=== PATIENT | male | born 1980 | race Caucasian/White ===

== ENCOUNTER 2017-02-11 22:52 | Emergency (ER) | payer OTHER ==
[~2017-02-11] VITALS: Ht 177.8 cm; Wt 67.5 kg
[2017-02-11 22:58] VITALS: Ht 177.8 cm; Wt 67.5 kg
[2017-02-11] MEDS ORDERED: NYST15CR16 TOP (23:11)
--- NOTE | 2017-02-12 00:11 | ERD ---
ER Documentation Chief Complaint Date/Time DATE: 02/12/17 TIME: 00:11 Chief Complaint chronic bilateral wound on both legs HPI Patient is a 37-year-old male with no medical problems who presents with ulcers to his legs. He has ulcers to his left leg and one ulcer on the right leg. They have been there for "a long time". He tried hydrogen peroxide. He said that it initially started when his leg was hit by a shopping cart. He is homeless. Upon review of old medical records this is the patient's first visit to the emergency department. Review of the emergency department information exchange shows no visits to other local emergency departments. However he does not currently have a primary doctor. He wants a cream for his ulcers. ROS All systems reviewed and are negative except as per history of present illness. Medications Home Meds Active Scripts Nystatin-Triamcinolone* (Nystatin-Triamcinolone* Cream) 15 Gm Cream.gm., 1 APPLIC TOP BID for 7 Days, TUB Prov:IMELDA MARSHALL MD 02/11/17 Allergies Allergies: Coded Allergies: No Known Allergy (Unverified , 02/11/17) PMhx/Soc Medical and Surgical Hx: pt denies Medical Hx, pt denies Surgical Hx Hx Alcohol Use: No Hx Substance Use: No Hx Tobacco Use: Yes Smoking Status: Current every day smoker FmHx Family History: diabetes Physical Exam Vitals Vital Signs Date Time Temp Pulse Resp B/P Pulse Ox O2 Delivery O2 Flow Rate FiO2 02/11/17 22:58 97.6 57 20 134/70 98 Physical Exam Const: No acute distress Head: Atraumatic Eyes: Normal Conjunctiva ENT: Normal External Ears, Nose and Mouth. Neck: Full range of motion..~ No meningismus. Resp: Clear to auscultation bilaterally Cardio: Regular rate and rhythm, no murmurs Abd: Soft, non tender, non distended. Normal bowel sounds Skin: Chronic appearing skin changes to the lower extremities bilaterally with multiple ulcers on the anterior portion of the shins Back: No midline or flank tenderness Ext: No cyanosis, or edema Neur: Awake and alert Psych: Normal Mood and Affect Procedures/MDM Smoking Cessation Therapy: Pt. was lectured for greater than 3 minutes on the health risks of continued smoking and the benefits of cessation. Patient is a 37-year-old male who presents with chronic appearing ulcer to the anterior legs. These ulcers are palpable and there is no sign of obvious infection at this time. However they could be fungal and I will treat with a combination nystatin and triamcinolone cream. The patient will need to follow- up closely with the local clinics as he does not currently have a primary doctor. I told him that if these ulcers persist he will likely need to see a casino gaming worker and potentially have a biopsy to confirm the actual diagnosis. At this point I do not believe patient requires further workup in the emergency department I believe outpatient management is appropriate. The patient can return for any worsening symptoms. Departure Diagnosis: Primary Impression: Leg ulcer, left Non-pressure ulcer stage: unspecified non-pressure ulcer stage Qualified Code : L97.929 - Leg ulcer, left, with unspecified severity Condition: Fair Patient Instructions: Skin Ulcer, Simple Referrals: [facility] YOU HAVE RECEIVED A MEDICAL SCREENING EXAM AND THE RESULTS INDICATE THAT YOU DO NOT HAVE A CONDITION THAT REQUIRES URGENT TREATMENT IN THE EMERGENCY DEPARTMENT. FURTHER EVALUATION AND TREATMENT OF YOUR CONDITION CAN WAIT UNTIL YOU ARE SEEN IN YOUR DOCTORS OFFICE WITHIN THE NEXT 1-2 DAYS. IT IS YOUR RESPONSIBILITY TO MAKE AN APPOINTMENT FOR [facility]. IF YOU HAVE A PRIMARY DOCTOR --you should call your primary doctor and schedule an appointment IF YOU DO NOT HAVE A PRIMARY DOCTOR YOU CAN CALL OUR PHYSICIAN REFERRAL HOTLINE AT IF YOU CAN NOT AFFORD TO SEE A PHYSICIAN YOU CAN CHOSE FROM THE FOLLOWING [facility] [address]. [facility] [address] [facility] [place] [facility] [address] [facility] [facility] [address] [facility]. [facility] [address] [facility]. [facility] [address] Additional Instructions: Call your primary care doctor TOMORROW for an appointment during the next 1-2 days.See the doctor sooner or return here if your condition worsens before your appointment time. IMELDA MARSHALL MD Feb 12, 2017 00:11
[2017-02-12] MEDS ORDERED: NYSTATIN/TRIAMCINOLONE 15 GM CR TOP ONE (00:30)
== END 2017-02-12 00:29 | disposition home or self-care (01) ==
LOC: FTE 22:52
DX: L97.929 Non-pressure chronic ulcer of unspecified part of left lower leg with unspecified severity (principal); F17.210 Nicotine dependence, cigarettes, uncomplicated
CPT/HCPCS: 99283

== ENCOUNTER 2017-08-03 05:43 | Emergency (ER) | payer MEDICAID, OTHER ==
[~2017-08-03] VITALS: Ht 160 cm; Wt 65.0 kg
[~2017-08-03 05:43] MED LIST: NYST15CR16 TOP
[2017-08-03 05:50] VITALS: Ht 160 cm; Wt 65.0 kg
[2017-08-03] MEDS ORDERED: CEPH-443 PO (06:47)
[2017-08-03] MEDS ORDERED: TRIA15CR55 TOP (06:47)
--- NOTE | 2017-08-03 06:47 | ERD ---
ER Documentation Chief Complaint Date/Time DATE: 08/03/17 TIME: 06:45 Chief Complaint Pt reports sores on bilateral lower extremities are not getting better HPI This is a 37-year-old male who presents to the emergency room for evaluation of sores on his lower extremity. The patient states that he has had the source for "many months". He also states that she came to the emergency room because "I needed to use the restroom, and I figured I would get these checked out at the same time" the patient is denying any fevers or chills associated with this and denies any new trauma. ROS All systems reviewed and are negative except as per history of present illness. Medications Home Meds Active Scripts Nystatin-Triamcinolone* (Nystatin-Triamcinolone* Cream) 15 Gm Cream.gm., 1 APPLIC TOP BID for 7 Days, TUB Prov:IMELDA MARSHALL MD 02/11/17 Allergies Allergies: Coded Allergies: No Known Allergy (Unverified , 02/11/17) PMhx/Soc Hx Alcohol Use: No Hx Substance Use: No Hx Tobacco Use: Yes Physical Exam Vitals Vital Signs Date Time Temp Pulse Resp B/P Pulse Ox O2 Delivery O2 Flow Rate FiO2 08/03/17 05:50 98.3 78 16 125/70 99 Physical Exam Const: Disheveled appearance Head: Atraumatic Eyes: Normal Conjunctiva ENT: Normal External Ears, Nose and Mouth. Neck: Full range of motion..~ No meningismus. Resp: Clear to auscultation bilaterally Cardio: Regular rate and rhythm, no murmurs Abd: Soft, non tender, non distended. Normal bowel sounds Skin: Superficial ulceration noted on the left lower extremity, chronic venous stasis Back: No midline or flank tenderness Ext: No cyanosis, or edema Neur: Awake and alert Psych: Normal Mood and Affect Procedures/MDM This 37-year-old male presents to the emergency room for evaluation of her chronic leg sores over the past few months. The patient originally came to the hospital sees a restroom and stated that he came to the ER just to get them checked out. He is not having any specific problem with his leg sores and states that they have not gotten worse. He denies any fevers and when I evaluated him he was hemodynamically stable and nontoxic appearing. Patient was given contact Keflex in the emergency room will be discharged at this time with a prescription for Keflex Departure Diagnosis: Primary Impression: Pain of left leg Additional Impression: Cellulitis, leg Condition: Stable YI APRK DO Aug 03, 2017 06:47
[2017-08-03] MEDS ORDERED: CEPHALEXIN 500 MG CAP PO ONE (07:00)
== END 2017-08-03 07:06 | disposition home or self-care (01) ==
LOC: E/R 05:43
DX: L03.116 Cellulitis of left lower limb (principal); Z87.891 Personal history of nicotine dependence
CPT/HCPCS: Z7502; Z7610; 99284